=== PATIENT | female | born 1950 | race Hispanic/Latino ===

== ENCOUNTER 2023-04-15 05:25 | Observation (INO) | payer OTHER ==
[2023-04-10 12:44] LABS: BASOPHILS # (AUTO) 0.04 K/uL (0.00-0.20); BASOPHILS % (AUTO) 0.4 % (0.0-5.0); EOSINOPHILS # (AUTO) 0.07 K/uL (0.00-0.70); EOSINOPHILS % (AUTO) 0.8 % (0.0-8.0); HEMATOCRIT 41.5 % (36-48); IMMATURE GRANULOCYTE ABSOLUTE 0.03 K/uL (0-1); LYMPHOCYTES # (AUTO) 2.2 K/uL (1.0-4.8); LYMPHOCYTES % (AUTO) 23.3 % (21.0-51.0); MEAN CORPUSCULAR HEMOGLOBIN 29.6 pg (27.0-33.0); MEAN CORPUSCULAR HGB CONC 31.6 g/dL (32.0-36.0); MEAN CORPUSCULAR VOLUME 93.9 fL (79-99); MONOCYTES # (AUTO) 0.8 K/uL (0.1-1.0); NEUTROPHILS # (AUTO) 6.2 K/uL (1.8-7.7); NEUTROPHILS % (AUTO) 66.2 % (40.0-77.0); PLATELET COUNT (AUTO) 260 K/uL (130-400); RED BLOOD CELL COUNT(AUTO) 4.42 MIL/uL (4.00-5.50); RED CELL DISTRIBUTION WIDTH 12.9 % (11.0-15.5); WHITE BLOOD COUNT (AUTO) 9.3 K/uL (4.8-10.8)
[2023-04-10 12:46] VITALS: BP 166/90; PULSE 61; RESP 15
[2023-04-10 12:56] LABS: CREATININE 0.7 mg/dL (0.5-1.5); INR < 0.93 (0.85-1.15); POTASSIUM 3.8 mmol/L (3.5-5.1); PROTHROMBIN TIME 10.8 SEC (9.6-11.6)
[2023-04-10 12:57] LABS: PARTIAL THROMBOPLASTIN TIME 28.7 SEC (26.3-35.5)
[2023-04-15] VITALS (28 sets, daily range): BP systolic 91–174; BP diastolic 35–96; PULSE 61–84; RESP 12–18; O2SAT 98
[~2023-04-15] VITALS: Ht 162.6 cm; Wt 55.4 kg
[~2023-04-15 05:25] MED LIST: AEC81 PO; ATEN50TA PO; ATOR40TA69 PO; DAPA10TA PO; FLUO10CA21 PO; GABA-529 PO; METF-446 PO; OMEP40CA21 PO
[2023-04-15] MEDS ORDERED: CEFAZOLIN SODIUM 2 GM VIAL ONE (05:47)
[2023-04-15] MEDS ORDERED: 0.9%NACL 1000ML 1,000 ML IV ONE (05:47)
[2023-04-15] MEDS ORDERED: 0.9%NACL 48.45 ML, ROPIVACAINE 0.5% 49.25ML, EPINEPH 0.5MG KETOROLAC 30MG,CLONIDINE 80MCG IV PRN ×5 (07:00)
[2023-04-15] MEDS ORDERED: TRANEXAMIC ACID 1000MG/10ML ONE (07:15)
[2023-04-15] MEDS ORDERED: CEFAZOLIN SODIUM 1 GM VIAL ONE ×2 (07:15→09:43)
[2023-04-15] MEDS ORDERED: GENTAMICIN SULFATE 80 MG/2 ML VIAL ONE ×2 (07:16→09:43)
[2023-04-15] MEDS ORDERED: SUGAMMADEX SODIUM 200 MG/2 ML VIAL IV ONE (07:51)
[2023-04-15] MEDS ORDERED: MIDAZOLAM HCL 1 MG/ML 2ML VIAL ONE (08:22)
[2023-04-15] MEDS ORDERED: PROPOFOL 10 MG/ML 20ML VIAL IV ONE (08:23)
[2023-04-15] MEDS ORDERED: FENTANYL CITRATE PF 50 MCG/1 ML 2ML VIAL ONE (08:25)
[2023-04-15] MEDS ORDERED: NITROGLYCERIN 50MG/D5W 250ML 1 BOT ONE (09:00)
[2023-04-15] MEDS ORDERED: ONDANSETRON 4MG INJ ONE (10:53)
[2023-04-15] MEDS ORDERED: MEPERIDINE-PF 25 MG/ML SYG ONE (10:53)
[2023-04-15] MEDS ORDERED: HYDROMORPHONE PCA 10 MG/50 ML 50 ML IV PRN (13:00)
[2023-04-15] MEDS ORDERED: LACTULOSE 20 GM/30 ML UDCUP PO PRN (13:00)
[2023-04-15] MEDS ORDERED: BENZOCAINE/MENTH/CETYLPYRD CL 1 EACH LOZENGE MM PRN (13:00)
[2023-04-15] MEDS ORDERED: ONDANSETRON 4MG INJ IVP PRN (13:00)
[2023-04-15] MEDS ORDERED: DiphenhydrAMINE HCL 50 MG/ML VIAL IM PRN (13:00)
[2023-04-15] MEDS ORDERED: DIPHENHYDRAMINE HCL 25 MG CAPSULE PO PRN ×2 (13:00)
[2023-04-15] MEDS ORDERED: TRAMADOL HCL 50 MG TABLET PO PRN (13:00)
[2023-04-15] MEDS ORDERED: DIPHENOXYLATE HCL/ATROPINE 2.5/0.025 MG TAB PO PRN (13:00)
[2023-04-15] MEDS ORDERED: ACETAMINOPHEN 325 MG TAB PO PRN ×3 (13:00)
[2023-04-15] MEDS ORDERED: MAG/ALUM/SIMETH 30 ML UDCUP PO PRN (13:00)
[2023-04-15] MEDS: 0.9%NACL 1000ML 1,000 ML IV SCH ×2 (13:55→23:00)
[2023-04-15] MEDS ORDERED: GLUCAGON 1MG KIT 1 MG ML IM PRN (14:00)
[2023-04-15] MEDS ORDERED: DEXTROSE 50%-WATER 50 ML DISP.SYRIN IV PRN (14:00)
[2023-04-15] MEDS: GABAPENTIN 100 MG CAPSULE PO SCH ×2 (15:00→21:35)
[2023-04-15] MEDS: INSULIN HUMULIN R 100 UNIT/ML 3ML SQ SCH ×2 (16:30→21:00)
[2023-04-15] MEDS: CEFAZOLIN SODIUM 2 GM VIAL IVPB SCH (16:59)
[2023-04-15] MEDS ORDERED: ATORVASTATIN 40 MG TABLET PO SCH (21:00)
[2023-04-15] MEDS: METFORMIN HCL 500 MG TABLET PO SCH (21:35)
[2023-04-16] VITALS: BP_SYST 158; BP_SYST 164; BP_DIAS 74; BP_DIAS 97; PULSE 101; RESP 18
[2023-04-16] MEDS: CEFAZOLIN SODIUM 2 GM VIAL IVPB SCH (00:28)
[2023-04-16 04:00] VITALS: BP 147/71; PULSE 97; RESP 22
[2023-04-16 04:37] LABS: HEMATOCRIT 28.9 % (36-48); MEAN CORPUSCULAR HEMOGLOBIN 29.8 pg (27.0-33.0); MEAN CORPUSCULAR HGB CONC 31.5 g/dL (32.0-36.0); MEAN CORPUSCULAR VOLUME 94.8 fL (79-99); RED BLOOD CELL COUNT(AUTO) 3.05 MIL/uL (4.00-5.50); RED CELL DISTRIBUTION WIDTH 13.1 % (11.0-15.5); WHITE BLOOD COUNT (AUTO) 12.2 K/uL (4.8-10.8)
[2023-04-16 05:11] LABS: CREATININE 0.6 mg/dL (0.5-1.5); POTASSIUM 3.7 mmol/L (3.5-5.1)
[2023-04-16 05:39] VITALS: TEMP 99.4
[2023-04-16] MEDS: INSULIN HUMULIN R 100 UNIT/ML 3ML SQ SCH ×3 (05:58→16:30)
[2023-04-16 08:00] VITALS: BP 97/49; PULSE 90; RESP 16; O2SAT 92
[2023-04-16] MEDS: 0.9%NACL 1000ML 1,000 ML IV SCH (08:28)
[2023-04-16] MEDS ORDERED: Dapagliflozin Propanediol (Farxiga) 10 MG PO SCH (09:00)
[2023-04-16] MEDS ORDERED: FLUOXETINE HCL 10 MG CAPSULE PO SCH (09:00)
[2023-04-16] MEDS ORDERED: ATENOLOL 50 MG TABLET PO SCH (09:00)
[2023-04-16] MEDS ORDERED: RIVAROXABAN 10 MG TABLET PO SCH (09:00)
[2023-04-16] MEDS ORDERED: PANTOPRAZOLE 40 MG TAB DR PO SCH (09:00)
[2023-04-16] MEDS: METFORMIN HCL 500 MG TABLET PO SCH (09:08)
[2023-04-16] MEDS: GABAPENTIN 100 MG CAPSULE PO SCH ×2 (09:08→14:40)
[2023-04-16 12:00] VITALS: BP 127/56; PULSE 90; RESP 16
[2023-04-16 16:00] VITALS: BP 112/55; PULSE 96; RESP 16
== END 2023-04-16 18:55 | disposition home health service (06) ==
LOC: DAH 05:25 → DAHIP 05:26 → 4CH 12:45
PROVIDERS: ADMIT Orthopaedic Surgery; ATTEND Orthopaedic Surgery
DX: M17.12 Unilateral primary osteoarthritis, left knee (principal); E11.9 Type 2 diabetes mellitus without complications; I10 Essential (primary) hypertension; K21.9 Gastro-esophageal reflux disease without esophagitis; I25.110 Atherosclerotic heart disease of native coronary artery with unstable angina pectoris; E78.5 Hyperlipidemia, unspecified; M51.36 Other intervertebral disc degeneration, lumbar region; Z86.2 Personal history of diseases of the blood and blood-forming organs and certain disorders involving the immune mechanism; Z95.1 Presence of aortocoronary bypass graft
CPT/HCPCS: 80048 ×2; 85025; 85610; 85730; 36415 ×2; 87641; 27447; 96365; 96366 ×2; 96375; 82948 ×6; 97161; 97012; 97530 ×6; 96376; 85027; 97116 ×2; G0378 ×28; A4510; A4663; J7030 ×3; A4215 ×2; A4649 ×4; J3010; J0690 ×5; J3490 ×2; J1170; J1580 ×2; J2250; J2704; J2405; J2175; A6223; A4930; C1763 ×2; C1776; A5120; A4223; A4222; A4221; A6450